=== PATIENT | male | born 1975 | race Hispanic/Latino ===

== ENCOUNTER 2017-01-16 01:39 | Observation (INO) | payer OTHER ==
[2017-01-16 01:49] VITALS: O2SAT 97
--- NOTE | 2017-01-16 02:06 | ED PDOC ---
HPI: Psych/Substance Abuse Time Seen by Provider: 01/16/17 01:39 Chief Complaint (Nursing): Alcohol Ingestion Chief Complaint (Provider): Alcohol ingestion ED Caveat: Intoxicated History Per: EMS History/Exam Limitations: intoxication Onset/Duration Of Symptoms: Hrs (prior to arrival) Current Symptoms Are (Timing): Still Present Associated Symptoms: Agitation Additional Complaint(s): Honorio Barrera is a 42 year old male, with no known past medical history, who was brought to the emergency department by EMS due to public intoxication prior to arrival. Patient has slurred speech and oriented only to person. EMS reports patient was in a cab unable to provide destination, when the armored cable machine operator called EMS who escorted them to ER. Full HPI unobtainable due to clinical condition of patient. PMD: None provided Past Medical History Reviewed: Historical Data, Nursing Documentation, Vital Signs Vital Signs: Last Vital Signs Temp 97.4 F L 01/16/17 01:45 Pulse 123 H 01/16/17 01:45 Resp 21 01/16/17 01:45 BP 168/88 H 01/16/17 01:45 Pulse Ox 97 01/16/17 01:45 - Family History Family History: States: Unknown Family Hx - Allergies Allergies/Adverse Reactions: Allergies Allergy/AdvReac Type Severity Reaction Status Date / Time No Known Allergies Allergy Verified 01/16/17 01:45 Review of Systems ROS Statement: Except As Marked, All Systems Reviewed And Found Negative Neurological: Positive for: Change in Speech (slurred speech) Physical Exam - Reviewed Nursing Documentation Reviewed: Yes Vital Signs Reviewed: Yes - Physical Exam Appears: Positive for: Well, No Acute Distress Head Exam: Positive for: ATRAUMATIC, NORMAL INSPECTION, NORMOCEPHALIC Skin: Positive for: Normal Color, Warm, Dry Eye Exam: Positive for: EOMI, Normal appearance, PERRL Neck: Positive for: Normal, Painless ROM, Supple Cardiovascular/Chest: Positive for: Regular Rate, Rhythm. Negative for: Murmur Respiratory: Positive for: Normal Breath Sounds. Negative for: Respiratory Distress Gastrointestinal/Abdominal: Positive for: Normal Exam, Bowel Sounds, Soft Back: Positive for: Normal Inspection Extremity: Positive for: Normal ROM. Negative for: Pedal Edema Neurologic/Psych: Positive for: Oriented (only to person), Mood/Affect ( uncooperative & agitated). Negative for: Motor/Sensory Deficits - Laboratory Results Result Diagrams: 01/16/17 02:39 01/16/17 02:39 - ECG O2 Sat by Pulse Oximetry: 97 (RA) Pulse Ox Interpretation: Normal - Critical Care Total Time (In Min): 30 Medical Decision Making Medical Decision Making: Initial Impression: 42 year old intoxicated male Initial Plan: --Alcohol serum --Comp Metabolic Panel --Drug screen, urine --ED urine dipstick --CBC w/ differential --Haldol 5 mg IM --Ativan 2 mg IM --1:1 observation --Accucheck --reevaluation -patient is uncooperative, agitated. Four point restraint used to protect patient from self injury and staff. 0700 -Patient signed up to Dr. Juarez. Pending sobriety Scribe Attestation: Documented by Ta Vital, acting as a scribe for Kulwant Cuadra MD Provider Scribe Attestation: All medical record entries made by the Scribe were at my direction and personally dictated by me. I have reviewed the chart and agree that the record accurately reflects my personal performance of the history, physical exam, medical decision making, and the department course for this patient. I have also personally directed, reviewed, and agree with the discharge instructions and disposition. ED OBSERVATION Date of observation admission: 01/16/17 Time of observation admission: 02:05 - Observation admission statement Patient is being placed in observation because:: Need for resolution of symptoms - Goals of Observation Goals of observation are:: Clinical sobriety - Progress Note Progress Note: 01/16/17 02:16 Patient remains intoxicated with unsteady gait and slurred speech 01/16/17 03:40 Patient is resting, vitals are stable. 01/16/17 05:15 Patient is resting comfortably, vitals are stable. Disposition - Clinical Impression Clinical Impression: Alcohol abuse with intoxication - Patient ED Disposition Is Patient to be Admitted: Transfer of Care - Disposition Disposition: Transfer of Care Disposition Time: 02:00 Condition: FAIR
[2017-01-16 02:55] LABS: BASO % 0.5 % (0.0-2.0); EOS # 0.2 K/uL (0.0-0.7); EOS % 2.5 % (0.0-4.0); HEMATOCRIT 40.5 % (35.0-51.0); LYMPH # 4.4 K/uL (1.0-4.3); LYMPH % 51.1 % (20.0-40.0); MEAN CELL VOLUME 91.9 fl (80.0-94.0); MEAN CORPUSCULAR HGB CONC 34.9 g/dL (33.0-37.0); MEAN PLATELET VOLUME 7.8 fl (7.2-11.7); MONO # 1.1 K/uL (0.0-0.8); MONO % 12.7 % (0.0-10.0); NEUT # 2.8 K/uL (1.8-7.0); NEUT % 33.2 % (50.0-75.0); NRBC % 0.2 % (0.0-0.0); RED CELL DISTRIBUTION WIDTH 13.1 % (11.5-14.5); WHITE BLOOD COUNT 8.5 K/uL (4.8-10.8)
[2017-01-16 02:58] LABS: ALB/GLOB RATIO 1.3 (1.0-2.1); ALKALINE PHOSPHATASE 68 U/L (38-126); ALT/SGPT 80 U/L (21-72); AST/SGOT 46 U/L (17-59); BILIRUBIN,TOTAL 0.6 mg/dl (0.2-1.3); BLOOD UREA NITROGEN 12 mg/dl (9-20); CALCIUM 9.1 mg/dL (8.4-10.2); CARBON DIOXIDE 23 mmol/L (22-30); CHLORIDE 99 mmol/L (98-107); GFR AFRICAN-AMERICAN > 60; GLUCOSE,RANDOM 138 mg/dL (75-110); POTASSIUM 4.4 MMOL/L (3.6-5.0); SODIUM 139 mmol/l (132-148); TOTAL PROTEIN 8.2 G/DL (6.3-8.2)
[2017-01-16 03:14] LABS: ALCOHOL SERUM 410 mg/dl (0-10)
--- NOTE | 2017-01-16 07:09 | ED PDOC ---
- Laboratory Results Result Diagrams: 01/16/17 02:39 01/16/17 02:39 - ECG O2 Sat by Pulse Oximetry: 97 (RA) Medical Decision Making Medical Decision Making: pt endorsed from Dr Cuadra 7am pending sobriety 0915: awake, ambulating steady gait, talking on phone. Wants to go home. Disposition Counseled Patient/Family Regarding: Studies Performed, Diagnosis - Clinical Impression Clinical Impression: Alcohol abuse with intoxication - POA Present On Arrival: None - Disposition Disposition: Routine/Home Disposition Time: 09:37 Condition: STABLE
[2017-01-16 09:39] VITALS: BP 132/79; PULSE 89; RESP 18; TEMP 98.4
== END 2017-01-16 09:38 | disposition home or self-care (01) ==
LOC: H.ER 01:39 → H.EROBSV 02:00
PROVIDERS: ADMIT Emergency Medicine; ATTEND Emergency Medicine
DX: F10.129 Alcohol abuse with intoxication, unspecified (principal); Y90.8 Blood alcohol level of 240 mg/100 ml or more
CPT/HCPCS: 80053; 80320; 80324; 80345; 80346; 80349; 80353; 80358; 80361; 83992; 85025; 96372; 99283; G0378; J1630; J2060